=== PATIENT | female | born 1995 | race Caucasian/White ===

== ENCOUNTER → 2018-06-22 | Outpatient (CLI) | payer OTHER ==
[~2018-06-22] MED LIST: ALBU90OI INH; BENZ100A PO; Bactrim Ds Tab1 EACH PO; CEPH500 PO; FISH1000 PO; GUAI120S1 PO; HYDACE7.5L PO; IBUP100S PO; NEXPLANON68 MG SQ; PREN-16 PO; Pseudoephedrine30 MG PO; Pyridium200 MG PO
[2018-06-22 14:19] LABS: BASOPHILS ABSOLUTE AUTO 0.06 K/mm3 (0.00-0.23); BASOPHILS PERCENT AUTO 1 % (0-2); EOSINOPHILS ABSOLUTE AUTO 0.11 K/mm3 (0.00-0.68); EOSINOPHILS PERCENT AUTO 2 % (0-6); Hematocrit 40.5 % (33.0-51.0); Hemoglobin 13.8 g/dL (11.5-16.0); IMMATURE GRAN ABSOLUTE AUTO 0.02 K/mm3 (0.00-0.10); IMMATURE GRAN PERCENT AUTO 0 % (0-1); LYMPHOCYTES ABSOLUTE AUTO 1.92 K/mm3 (0.84-5.20); LYMPHOCYTES PERCENT AUTO 31 % (21-46); MONOCYTES ABSOLUTE AUTO 0.34 K/mm3 (0.16-1.47); MONOCYTES PERCENT AUTO 6 % (4-13); Mean Corpuscular HGB 29.4 pg (26.0-34.0); Mean Corpuscular HGB Conc 34.1 g/dL (31.5-36.5); Mean Corpuscular Volume 86 fL (80-100); NEUTROPHILS ABSOLUTE AUTO 3.68 K/mm3 (1.96-9.15); NEUTROPHILS PERCENT AUTO 60 % (41-73); Platelet Count 216 K/mm3 (150-400); RDW Coefficient Variation 12.4 % (11.7-14.2); RDW Standard Deviation 39.1 fL (35.1-46.3); White Blood Cell Count 6.13 K/mm3 (4.00-11.30)
[2018-06-22 14:36] LABS: Alanine Aminotransfer (ALT/SGP 20 U/L (12-78); Albumin, Blood 4.2 g/dL (3.4-5.0); Albumin/Globulin Ratio 1.2 (0.8-1.8); Alk Phos 43 U/L (40-126); Anion Gap 8 mmol/L (6-16); Aspartate Aminotrans (AST/SGOT 14 U/L (12-37); Bilirubin, Total 0.2 mg/dL (0.1-1.0); Blood Urea Nitrogen 19 mg/dL (8-24); CO2, Blood 27 mmol/L (21-32); Calcium, Blood 9.1 mg/dL (8.5-10.1); Chloride, Blood 104 mmol/L (98-108); Creatinine, Blood 0.73 mg/dL (0.40-1.00); Globulin, Blood 3.6 g/dL (2.2-4.0); Glomerular Filtration Rate >60 (60-); Glucose, Blood 86 mg/dL (70-99); Sodium, Blood 139 mmol/L (136-145); Thyroid Stimulating Hormone 1.036 uIU/mL (0.360-4.800); Total Protein, Blood 7.8 g/dL (6.4-8.2)
== END | disposition home or self-care (01) ==
LOC: LAB EV 14:13 → LAB SHORT 14:13
PROVIDERS: Physician Assistant
DX: R53.83 Other fatigue (principal)
CPT/HCPCS: 80053; 84443; 85025

== ENCOUNTER → 2019-02-15 | Outpatient (CLI) | payer BC ==
[2019-02-15 10:46] LABS: BASOPHILS ABSOLUTE AUTO 0.06 K/mm3 (0.00-0.23); BASOPHILS PERCENT AUTO 1 % (0-2); EOSINOPHILS ABSOLUTE AUTO 0.06 K/mm3 (0.00-0.68); EOSINOPHILS PERCENT AUTO 1 % (0-6); Hematocrit 42.2 % (33.0-51.0); Hemoglobin 14.3 g/dL (11.5-16.0); IMMATURE GRAN ABSOLUTE AUTO 0.02 K/mm3 (0.00-0.10); IMMATURE GRAN PERCENT AUTO 0 % (0-1); LYMPHOCYTES ABSOLUTE AUTO 1.77 K/mm3 (0.84-5.20); LYMPHOCYTES PERCENT AUTO 24 % (21-46); MONOCYTES ABSOLUTE AUTO 0.49 K/mm3 (0.16-1.47); MONOCYTES PERCENT AUTO 7 % (4-13); Mean Corpuscular HGB 29.3 pg (26.0-34.0); Mean Corpuscular HGB Conc 33.9 g/dL (31.5-36.5); Mean Corpuscular Volume 87 fL (80-100); Mean Platelet Volume 11.8 fL (9.1-12.4); NEUTROPHILS PERCENT AUTO 68 % (41-73); Platelet Count 221 K/mm3 (150-400); RDW Coefficient Variation 12.4 % (11.7-14.2); Red Blood Cell Count 4.88 M/mm3 (3.80-5.20)
[2019-02-15 10:59] LABS: Alanine Aminotransfer (ALT/SGP 20 U/L (12-78); Albumin, Blood 4.5 g/dL (3.4-5.0); Albumin/Globulin Ratio 1.2 (0.8-1.8); Alk Phos 50 U/L (40-126); Anion Gap 10 mmol/L (6-16); Aspartate Aminotrans (AST/SGOT 19 U/L (12-37); Bilirubin, Total 0.3 mg/dL (0.1-1.0); Blood Urea Nitrogen 11 mg/dL (8-24); Bun/Creatinine Ratio 14.5 (12.0-20.0); CO2, Blood 26 mmol/L (21-32); Calcium, Blood 8.8 mg/dL (8.5-10.1); Chloride, Blood 105 mmol/L (98-108); Creatinine, Blood 0.76 mg/dL (0.40-1.00); Globulin, Blood 3.9 g/dL (2.2-4.0); Glomerular Filtration Rate >60 (60-); Glucose, Blood 87 mg/dL (70-99); Potassium, Blood 3.9 mmol/L (3.5-5.5); Sodium, Blood 141 mmol/L (136-145); Total Protein, Blood 8.4 g/dL (6.4-8.2)
== END | disposition home or self-care (01) ==
LOC: LAB EV 10:42 → LAB SHORT 10:42
PROVIDERS: Physician Assistant
DX: N39.0 Urinary tract infection, site not specified (principal); R10.31 Right lower quadrant pain
CPT/HCPCS: 80053; 85025; 87077; 87086; 87186

== ENCOUNTER 2022-01-16 05:08 | Inpatient (IN) | payer BC, OTHER ==
[~2022-01-16] VITALS: Ht 162.6 cm; Wt 99.5 kg
[2022-01-16] MEDS ORDERED: PRENATAL TABLE1 EAC2 PO (06:02)
[2022-01-16] MEDS ORDERED: SERT100 PO (06:02)
[2022-01-16 06:03] LABS: BASOPHILS ABSOLUTE AUTO 0.05 K/mm3 (0.00-0.23); BASOPHILS PERCENT AUTO 0 % (0-2); EOSINOPHILS ABSOLUTE AUTO 0.13 K/mm3 (0.00-0.68); EOSINOPHILS PERCENT AUTO 1 % (0-6); Hematocrit 38.2 % (33.0-51.0); Hemoglobin 13.3 g/dL (11.5-16.0); IMMATURE GRAN ABSOLUTE AUTO 0.09 K/mm3 (0.00-0.10); IMMATURE GRAN PERCENT AUTO 1 % (0-1); LYMPHOCYTES PERCENT AUTO 24 % (21-46); MONOCYTES ABSOLUTE AUTO 0.91 K/mm3 (0.16-1.47); MONOCYTES PERCENT AUTO 8 % (4-13); Mean Corpuscular HGB 30.2 pg (26.0-34.0); Mean Corpuscular HGB Conc 34.8 g/dL (31.5-36.5); Mean Corpuscular Volume 87 fL (80-100); Mean Platelet Volume 13.4 fL (9.1-12.4); NEUTROPHILS ABSOLUTE AUTO 7.42 K/mm3 (1.96-9.15); NEUTROPHILS PERCENT AUTO 66 % (41-73); Platelet Count 186 K/mm3 (150-400); RDW Coefficient Variation 12.6 % (11.7-14.2); RDW Standard Deviation 39.8 fL (35.1-46.3); Red Blood Cell Count 4.41 M/mm3 (3.80-5.20)
[2022-01-16] MEDS ORDERED: IRON18 MG PO (06:03)
[2022-01-17 06:26] LABS: Hematocrit 36.3 % (33.0-51.0); Hemoglobin 12.4 g/dL (11.5-16.0); Mean Corpuscular HGB 30.1 pg (26.0-34.0); Mean Corpuscular HGB Conc 34.2 g/dL (31.5-36.5); Mean Corpuscular Volume 88 fL (80-100); Mean Platelet Volume 13.6 fL (9.1-12.4); Platelet Count 186 K/mm3 (150-400); RDW Coefficient Variation 12.7 % (11.7-14.2); RDW Standard Deviation 40.8 fL (35.1-46.3); Red Blood Cell Count 4.12 M/mm3 (3.80-5.20); White Blood Cell Count 12.42 K/mm3 (4.00-11.30)
[2022-01-17] MEDS ORDERED: IBUP800 PO (12:50)
--- NOTE | 2022-01-17 13:30 | NUR ---
DISCHARGED INSTRUCTIONS REVIEWED WITH PATIEN. PATIENT VERBALIZED UNDERSTANDING DENIED ADDITIONAL QUESTIONS OR CONCERNS. ID BANDS MATCHED. PATIENT D/C'D HOME WITH .
--- NOTE | 2022-01-17 13:35 | NUR ---
ALL CHARTING REVIEWED
--- NOTE | 2022-01-17 13:35 | NUR ---
CLARIFY- CHARTING BY EP REVIEWED
== END 2022-01-17 14:05 | disposition home or self-care (01) | DRG 807 ==
LOC: OBS 05:08 → BC 05:09 → OBS 05:15 → BC 05:16
PROVIDERS: ADMIT Nurse Practitioner Obstetrics & Gynecology
PROC: 10E0XZZ Delivery of Products of Conception, External Approach (ICD-10-PCS; principal; 2022-01-16)
PROC: 10907ZC Drainage of Amniotic Fluid, Therapeutic from Products of Conception, Via Natural or Artificial Opening (ICD-10-PCS; 2022-01-16)
PROC: 3E0R3BZ Introduction of Anesthetic Agent into Spinal Canal, Percutaneous Approach (ICD-10-PCS; 2022-01-16)
PROC: 00HU33Z Insertion of Infusion Device into Spinal Canal, Percutaneous Approach (ICD-10-PCS; 2022-01-16)
PROC: 3E0234Z Introduction of Serum, Toxoid and Vaccine into Muscle, Percutaneous Approach (ICD-10-PCS; 2022-01-16)
DX: O13.4 Gestational [pregnancy-induced] hypertension without significant proteinuria, complicating childbirth (principal); Z37.0 Single live birth; Z3A.39 39 weeks gestation of pregnancy; Z88.6 Allergy status to analgesic agent; Z88.5 Allergy status to narcotic agent; Z88.0 Allergy status to penicillin; Z23 Encounter for immunization
CPT/HCPCS: 36415; 36416; 51702; 85025; 85027; 86850; 86900; 86901; 86923; 90686; A9270; J1885; J2210; J2590; J3010; J7120

== ENCOUNTER 2024-01-01 08:38 | Day surgery (SDC) | payer BC, OTHER ==
[~2024-01-01] VITALS: Ht 167.6 cm; Wt 76.7 kg
[~2024-01-01 08:38] MED LIST changes: +IBUP800 PO; +IRON18 MG PO; +Lactated Ringer's 1,000 ML IV ONE; +PRENATAL TABLE1 EAC2 PO; +Ropivacaine 0.5% HCL/PF 5 MG/ML 30ML Vial ONE; +SERT100 PO
[2024-01-01] MEDS ORDERED: Rocuronium Bromide 10 MG/ML 5ML Injection IV ONE (09:02)
[2024-01-01] MEDS ORDERED: Dexamethasone Sod Phos 10 MG/ML 1ML VIAL ONE (09:02)
[2024-01-01] MEDS ORDERED: Ondansetron HCl 2 MG / ML 2ML Vial ONE (09:02)
[2024-01-01] MEDS ORDERED: FentaNYL Citrate 50 MCG/ML 2 ML Injection ONE ×2 (09:02→11:18)
[2024-01-01] MEDS ORDERED: propofoL 20 ML IV ONE (09:02)
[2024-01-01] MEDS ORDERED: Sugammadex Sodium 200 MG/2ML SDV (100 MG/ML) ONE (09:02)
[2024-01-01] MEDS ORDERED: Ketorolac Tromethamine 30mg Vial ONE (09:02)
[2024-01-01] MEDS ORDERED: NS 50 ML IV ONE (09:21)
[2024-01-01] MEDS ORDERED: CeFAZolin Sodium 2,000 MG VIAL ONE (09:22)
[2024-01-01] MEDS ORDERED: Hair, Skin & N1 EACH PO (09:28)
[2024-01-01] MEDS ORDERED: Lactated Ringer's 1,000 ML IV ONE (09:38)
--- NOTE | 2024-01-01 10:28 | NUR ---
01/01/24 Sangeetha Gao 30ML OF ROPIVACAINE 0.5% MIXED AND VERIFIED WITH 0.15ML OF EPI (1MG/ML) TO MAKE ROPIVACAINE0.5% WITH EPI 1:200,000 FOR INJECTION AT THE OPSITE.
[2024-01-01] MEDS ORDERED: EPINEPhrine HCl 1 MG/ML 1ML Amp XX ONE (10:34)
[2024-01-01] MEDS ORDERED: OxyCODONE 5 mg/Acetamin 325 mg TABLET ONE (11:17)
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
--- NOTE | 2024-01-01 11:40 | NUR ---
01/01/24 1139 AMARI MAXWELL PT STATES PAIN FROM MENSTRAL PERIOD PRIOR TO SURGERY WAS A 3-4/ CURRENTLY 5/10 AFTER FIRST 25MCG OF FENTANYL. SECOND DOSE WAS GIVEN = 50MCG
[2024-01-01 11:59] VITALS: BP 106/84
== END 2024-01-01 12:20 | disposition home or self-care (01) ==
LOC: ORSCSDS 08:38
PROVIDERS: Obstetrics & Gynecology
PROC: 0UT74ZZ Resection of Bilateral Fallopian Tubes, Percutaneous Endoscopic Approach (ICD-10-PCS; principal; 2024-01-01 10:00)
PROC: 0JPV3HZ Removal of Contraceptive Device from Upper Extremity Subcutaneous Tissue and Fascia, Percutaneous Approach (ICD-10-PCS; principal; 2024-01-01 10:00)
DX: Z30.2 Encounter for sterilization (principal); Z30.46 Encounter for surveillance of implantable subdermal contraceptive; N80.329 Endometriosis of the posterior cul-de-sac, unspecified depth; F32.A Depression, unspecified; Z79.899 Other long term (current) drug therapy
CPT/HCPCS: 88302; A9270; J0171; J0690; J1100; J1885; J2405; J2704; J2795; J3010; J7120

== ENCOUNTER → 2025-02-07 | Outpatient (CLI) | payer BC, OTHER ==
[~2025-02-07] MED LIST changes: +Hair, Skin & N1 EACH PO; -Lactated Ringer's 1,000 ML IV ONE; -Ropivacaine 0.5% HCL/PF 5 MG/ML 30ML Vial ONE
[2025-02-07 16:56] LABS: Bacterial Vaginosis PCR Negative (NEGATIVE); Candida Group, PCR NOT DETECTED (NOT DETECT); Candida glabrata-krusei, PCR NOT DETECTED (NOT DETECT)
== END ==
LOC: LAB SHORT 11:00 → LAB 11:00
PROVIDERS: Nurse Practitioner
DX: R30.0 Dysuria (principal); N94.89 Other specified conditions associated with female genital organs and menstrual cycle
CPT/HCPCS: 81515; 87086